=== PATIENT | male | born 1955 | race Caucasian/White ===

== ENCOUNTER 2022-01-18 18:28 | Inpatient (IN) | payer OTHER ==
[2022-01-18 19:05] VITALS: BMI 26.8
[2022-01-18] MEDS ORDERED: BISMUTH SUBSALICYLATE 524 MG/30 ML PO PRN (19:52)
[2022-01-18] MEDS ORDERED: DICYCLOMINE HCL 10 MG CAPSULE PO PRN (19:52)
[2022-01-18] MEDS ORDERED: ACETAMINOPHEN 325 MG TABLET (FP) PO PRN ×2 (19:52)
[2022-01-18] MEDS ORDERED: MAGNESIUM CITRATE 300 ML BOTTLE PO PRN (19:52)
[2022-01-18] MEDS ORDERED: MAGNESIUM HYDROX 2400MG/30ML ORAL SUSPENSION 30 ML CUP PO PRN (19:52)
[2022-01-18] MEDS ORDERED: LOPERAMIDE HCL 2 MG CAPSULE PO PRN (19:52)
[2022-01-18] MEDS ORDERED: MAG HYDROX/AL HYDROX/SIMETH 30 ML UNIT-DOSE CUP PO PRN (19:52)
[2022-01-18] MEDS ORDERED: IBUPROFEN 400 MG TABLET (FP) PO PRN (19:52)
[2022-01-18] MEDS ORDERED: BENZOCAINE/MENTHOL (CHLORASEPTIC ) LOZENGE MM PRN (19:52)
[2022-01-18] MEDS ORDERED: ONDANSETRON *ODT* 4 MG TABLET SL PRN (19:52)
[2022-01-18] MEDS ORDERED: METHOCARBAMOL 500 MG TABLET PO PRN (19:52)
[2022-01-18] MEDS ORDERED: chlordiazePOXIDE HCL 25 MG CAPSULE PO PRN (19:55)
[2022-01-18] MEDS ORDERED: cloNIDine HCL 0.1 MG TABLET PO ONE (21:19)
[2022-01-18] MEDS: chlordiazePOXIDE HCL 25 MG CAPSULE PO SCH (22:34)
[2022-01-18] MEDS: THIAMINE HCL 100 MG TABLET (FP) PO SCH (22:35)
[2022-01-18] MEDS: MELATONIN 5 MG TABLETS PO SCH (22:40)
[2022-01-19] MEDS: chlordiazePOXIDE HCL 25 MG CAPSULE PO SCH ×4 (05:24→22:18)
[2022-01-19] MEDS: PRENATAL VITAMINS W/ FOLIC ACID TABLET (FP) PO SCH (10:29)
[2022-01-19 12:33] LABS: HEMATOCRIT 36.5 % (35.4-49); HEMOGLOBIN 12.5 GM/dL (11.7-16.9); MCH 30.9 pg (25.7-33.7); MCHC 34.4 g/dl (32.0-35.9); MEAN CELL VOLUME 89.9 fl (80-96); MEAN PLT VOLUME 6.7 fl (7.5-11.1); PLATELET COUNT 278 10^3/uL (134-434); RBC 4.06 M/mm3 (4.00-5.60); RDW 12.9 % (11.9-15.9); WHITE BLOOD COUNT 5.1 K/mm3 (4.0-10.0)
[2022-01-19 13:25] LABS: CALCIUM 8.5 mg/dL (8.5-10.1)
[2022-01-19 13:26] LABS: ALBUMIN 3.3 g/dl (3.4-5.0); BLOOD UREA NITROGEN 7.7 mg/dL (7-18)
[2022-01-19 13:28] LABS: CREATININE 0.7 mg/dL (0.55-1.3)
[2022-01-19 13:30] LABS: TOT PROT 6.5 g/dl (6.4-8.2)
[2022-01-19] MEDS: THIAMINE HCL 100 MG TABLET (FP) PO SCH (22:18)
[2022-01-19] MEDS: MELATONIN 5 MG TABLETS PO SCH (22:18)
[2022-01-20] MEDS: chlordiazePOXIDE HCL 25 MG CAPSULE PO SCH ×4 (05:20→23:02)
[2022-01-20] MEDS: PRENATAL VITAMINS W/ FOLIC ACID TABLET (FP) PO SCH (10:18)
[2022-01-20 16:08] LABS: SARS-CoV-2 NAA Not Detected (Not Detected)
[2022-01-20] MEDS: THIAMINE HCL 100 MG TABLET (FP) PO SCH (23:01)
[2022-01-20] MEDS: MELATONIN 5 MG TABLETS PO SCH (23:02)
[2022-01-21] MEDS ORDERED: chlordiazePOXIDE HCL 10 MG CAPSULE PO PRN
[2022-01-21] MEDS: chlordiazePOXIDE HCL 10 MG CAPSULE PO SCH ×4 (05:29→22:26)
[2022-01-21] MEDS: PANTOPRAZOLE 20 MG TABLET PO SCH (10:29)
[2022-01-21] MEDS: PRENATAL VITAMINS W/ FOLIC ACID TABLET (FP) PO SCH (10:29)
[2022-01-21] MEDS: THIAMINE HCL 100 MG TABLET (FP) PO SCH (22:26)
[2022-01-21] MEDS: MELATONIN 5 MG TABLETS PO SCH (22:26)
[2022-01-22] MEDS: chlordiazePOXIDE HCL 10 MG CAPSULE PO SCH ×2 (05:22→18:00)
[2022-01-22] MEDS: PRENATAL VITAMINS W/ FOLIC ACID TABLET (FP) PO SCH (10:19)
[2022-01-22] MEDS: PANTOPRAZOLE 20 MG TABLET PO SCH (10:19)
[2022-01-22] MEDS: THIAMINE HCL 100 MG TABLET (FP) PO SCH (22:21)
[2022-01-22] MEDS: MELATONIN 5 MG TABLETS PO SCH (22:21)
[2022-01-23] MEDS ORDERED: chlordiazePOXIDE HCL 10 MG CAPSULE PO ONE (05:00)
[2022-01-23 08:52] VITALS: BP 122/79; PULSE 95; TEMP 97.3
[2022-01-23] MEDS: PANTOPRAZOLE 20 MG TABLET PO SCH (10:30)
[2022-01-23] MEDS: PRENATAL VITAMINS W/ FOLIC ACID TABLET (FP) PO SCH (10:30)
== END 2022-01-23 12:34 | disposition other institution (70) | DRG 897 ==
LOC: YASAS 18:28 → Y3N 20:13
PROVIDERS: ADMIT Allergy & Immunology; ATTEND Allergy & Immunology
PROC: HZ2ZZZZ Detoxification Services for Substance Abuse Treatment (ICD-10-PCS; principal; 2022-01-18)
DX: F10.230 Alcohol dependence with withdrawal, uncomplicated (principal); F41.9 Anxiety disorder, unspecified; E78.5 Hyperlipidemia, unspecified; I10 Essential (primary) hypertension; K21.9 Gastro-esophageal reflux disease without esophagitis; Z96.641 Presence of right artificial hip joint; Z87.891 Personal history of nicotine dependence
CPT/HCPCS: 36415; 80053; 85027; 86780; 93005; 93010; C9803-CS; J0735; U0003; U0005

== ENCOUNTER 2022-01-19 00:14 | Emergency (ER) | payer OTHER ==
[2022-01-19 00:21] VITALS: BP 136/87; PULSE 78; TEMP 98.1; BMI 27.1
== END 2022-01-19 01:14 | disposition home or self-care (01) ==
LOC: JER 00:14
DX: R94.31 Abnormal electrocardiogram [ECG] [EKG] (principal)
CPT/HCPCS: 93005; 93010; 99283-25

== ENCOUNTER 2022-01-23 12:38 | Inpatient (IN) | payer OTHER ==
[2022-01-23] MEDS ORDERED: BENZOCAINE/MENTHOL (CHLORASEPTIC ) LOZENGE MM PRN (14:28)
[2022-01-23] MEDS ORDERED: MAGNESIUM CITRATE 300 ML BOTTLE PO PRN (14:28)
[2022-01-23] MEDS ORDERED: LOPERAMIDE HCL 2 MG CAPSULE PO PRN (14:28)
[2022-01-23] MEDS ORDERED: NICOTINE 10 MG CARTRIDGE (INHALER) IH PRN (14:28)
[2022-01-23] MEDS ORDERED: ACETAMINOPHEN 325 MG TABLET (FP) PO PRN (14:28)
[2022-01-23] MEDS ORDERED: P-EPHED 60MG/TRIPROLIDI 2.5MG TABLET PO PRN (14:28)
[2022-01-23] MEDS ORDERED: MAGNESIUM HYDROX 2400MG/30ML ORAL SUSPENSION 30 ML CUP PO PRN (14:28)
[2022-01-23] MEDS ORDERED: MAG HYDROX/AL HYDROX/SIMETH 30 ML UNIT-DOSE CUP PO PRN (14:28)
[2022-01-23] MEDS ORDERED: guaiFENesin 200 MG/10 ML 10 ML UNIT-DOSE CUPS PO PRN (14:28)
[2022-01-23] MEDS: THIAMINE HCL 100 MG TABLET (FP) PO SCH (21:48)
[2022-01-23] MEDS: MELATONIN 5 MG TABLETS PO SCH (21:48)
[2022-01-24] MEDS: PANTOPRAZOLE 20 MG TABLET PO SCH (09:50)
[2022-01-24] MEDS: PRENATAL VITAMINS W/ FOLIC ACID TABLET (FP) PO SCH (09:50)
[2022-01-24] MEDS: NICOTINE 7 MG/24 HOURS TOPICAL PATCH TD SCH (11:12)
[2022-01-24] MEDS: MELATONIN 5 MG TABLETS PO SCH (21:47)
[2022-01-24] MEDS: THIAMINE HCL 100 MG TABLET (FP) PO SCH (21:47)
[2022-01-25] MEDS: PANTOPRAZOLE 20 MG TABLET PO SCH (09:53)
[2022-01-25] MEDS: PRENATAL VITAMINS W/ FOLIC ACID TABLET (FP) PO SCH (09:53)
[2022-01-25] MEDS: NICOTINE 7 MG/24 HOURS TOPICAL PATCH TD SCH (09:54)
[2022-01-25] MEDS: THIAMINE HCL 100 MG TABLET (FP) PO SCH (22:00)
[2022-01-25] MEDS: MELATONIN 5 MG TABLETS PO SCH (22:00)
[2022-01-25] MEDS: IBUPROFEN 400 MG TABLET (FP) PO PRN (22:01)
[2022-01-26] MEDS: PANTOPRAZOLE 20 MG TABLET PO SCH (09:57)
[2022-01-26] MEDS: NICOTINE 7 MG/24 HOURS TOPICAL PATCH TD SCH (09:57)
[2022-01-26] MEDS: PRENATAL VITAMINS W/ FOLIC ACID TABLET (FP) PO SCH (09:57)
[2022-01-26] MEDS: IBUPROFEN 400 MG TABLET (FP) PO PRN (09:58)
[2022-01-26] MEDS: MELATONIN 5 MG TABLETS PO SCH (21:17)
[2022-01-26] MEDS: THIAMINE HCL 100 MG TABLET (FP) PO SCH (21:17)
[2022-01-26] MEDS: hydrOXYzine PAMOATE 25 MG CAPSULE (FP) PO PRN (21:17)
[2022-01-27] MEDS: NICOTINE 7 MG/24 HOURS TOPICAL PATCH TD SCH (09:42)
[2022-01-27] MEDS: PRENATAL VITAMINS W/ FOLIC ACID TABLET (FP) PO SCH (09:42)
[2022-01-27] MEDS: IBUPROFEN 400 MG TABLET (FP) PO PRN ×2 (09:43→21:16)
[2022-01-27] MEDS: PANTOPRAZOLE 20 MG TABLET PO SCH (10:43)
[2022-01-27 16:17] LABS: SARS-CoV-2 NAA Not Detected (Not Detected)
[2022-01-27] MEDS: THIAMINE HCL 100 MG TABLET (FP) PO SCH (21:15)
[2022-01-27] MEDS: MELATONIN 5 MG TABLETS PO SCH (21:15)
[2022-01-28] MEDS: hydrOXYzine PAMOATE 25 MG CAPSULE (FP) PO PRN (06:43)
[2022-01-28] MEDS: PRENATAL VITAMINS W/ FOLIC ACID TABLET (FP) PO SCH (09:47)
[2022-01-28] MEDS: PANTOPRAZOLE 20 MG TABLET PO SCH (09:48)
[2022-01-28] MEDS: NICOTINE 7 MG/24 HOURS TOPICAL PATCH TD SCH (09:48)
[2022-01-28] MEDS: THIAMINE HCL 100 MG TABLET (FP) PO SCH (21:05)
[2022-01-28] MEDS: MELATONIN 5 MG TABLETS PO SCH (21:05)
[2022-01-29] MEDS: NICOTINE 7 MG/24 HOURS TOPICAL PATCH TD SCH (09:59)
[2022-01-29] MEDS: PANTOPRAZOLE 20 MG TABLET PO SCH (09:59)
[2022-01-29] MEDS: PRENATAL VITAMINS W/ FOLIC ACID TABLET (FP) PO SCH (09:59)
[2022-01-29] MEDS: THIAMINE HCL 100 MG TABLET (FP) PO SCH (21:19)
[2022-01-29] MEDS: MELATONIN 5 MG TABLETS PO SCH (21:19)
[2022-01-29] MEDS: IBUPROFEN 400 MG TABLET (FP) PO PRN (21:20)
[2022-01-30] MEDS: PANTOPRAZOLE 20 MG TABLET PO SCH (09:49)
[2022-01-30] MEDS: PRENATAL VITAMINS W/ FOLIC ACID TABLET (FP) PO SCH (09:49)
[2022-01-30] MEDS: NICOTINE 7 MG/24 HOURS TOPICAL PATCH TD SCH (09:50)
[2022-01-30] MEDS: THIAMINE HCL 100 MG TABLET (FP) PO SCH (21:26)
[2022-01-30] MEDS: MELATONIN 5 MG TABLETS PO SCH (21:26)
[2022-01-30] MEDS: IBUPROFEN 400 MG TABLET (FP) PO PRN (21:27)
[2022-01-31] MEDS: NICOTINE 7 MG/24 HOURS TOPICAL PATCH TD SCH (09:56)
[2022-01-31] MEDS: PRENATAL VITAMINS W/ FOLIC ACID TABLET (FP) PO SCH (09:56)
[2022-01-31] MEDS: PANTOPRAZOLE 20 MG TABLET PO SCH (09:56)
[2022-01-31] MEDS: MELATONIN 5 MG TABLETS PO SCH (21:12)
[2022-01-31] MEDS: THIAMINE HCL 100 MG TABLET (FP) PO SCH (21:12)
[2022-02-01 07:07] VITALS: BP 133/79; PULSE 86; TEMP 96.8
[2022-02-01] MEDS: NICOTINE 7 MG/24 HOURS TOPICAL PATCH TD SCH (09:43)
[2022-02-01] MEDS: PRENATAL VITAMINS W/ FOLIC ACID TABLET (FP) PO SCH (09:44)
[2022-02-01] MEDS: PANTOPRAZOLE 20 MG TABLET PO SCH (09:44)
== END 2022-02-01 12:25 | disposition home or self-care (01) | DRG 895 ==
LOC: YASAS 12:38 → Y5N 12:39
PROVIDERS: ADMIT Allergy & Immunology; ATTEND Allergy & Immunology
PROC: HZ42ZZZ Group Counseling for Substance Abuse Treatment, Cognitive-Behavioral (ICD-10-PCS; principal; 2022-01-23)
DX: F10.20 Alcohol dependence, uncomplicated (principal); E78.5 Hyperlipidemia, unspecified; I10 Essential (primary) hypertension; K21.9 Gastro-esophageal reflux disease without esophagitis
CPT/HCPCS: C9803-CS; U0003; U0005